=== PATIENT | male | born 1985 | race Caucasian/White ===

== ENCOUNTER 2017-12-30 00:30 | Emergency (ER) | payer SELFPAY ==
[~2017-12-30] VITALS: Ht 180.3 cm; Wt 132.4 kg
[2017-12-30 00:32] VITALS: BP 147/89
== END 2017-12-30 00:55 | disposition left against medical advice (07) ==
LOC: ER 00:33
DX: F41.9 Anxiety disorder, unspecified (principal); Z53.21 Procedure and treatment not carried out due to patient leaving prior to being seen by health care provider
CPT/HCPCS: A4606; Z7610